=== PATIENT | female | born 1965 | race Caucasian/White ===

== ENCOUNTER 2022-08-16 17:48 | Outpatient (CLI) | payer OTHER, SELFPAY | END 2022-08-16 17:49 | disposition home or self-care (01) | LOC: FRMREF 08-23 14:33 | PROVIDERS: Visit Provider Family Medicine | DX: Z01.818 Encounter for other preprocedural examination (principal); R31.9 Hematuria, unspecified | CPT/HCPCS: 87086 ==

== ENCOUNTER 2023-04-12 11:18 | Outpatient (CLI) | payer OTHER, SELFPAY | END 2023-04-12 11:19 | disposition home or self-care (01) | LOC: NFLDREF 04-13 10:46 | PROVIDERS: Visit Provider Physician Assistant | DX: R30.0 Dysuria (principal) | CPT/HCPCS: 87086; 87186 ==

== ENCOUNTER 2023-06-28 15:49 | Outpatient (CLI) | payer OTHER, SELFPAY | END 2023-06-28 15:50 | disposition home or self-care (01) | LOC: NFLDREF 06-29 12:02 | PROVIDERS: Visit Provider Physician Assistant | DX: R31.29 Other microscopic hematuria (principal); H93.19 Tinnitus, unspecified ear; H91.90 Unspecified hearing loss, unspecified ear | CPT/HCPCS: 87086 ==

== ENCOUNTER 2023-07-29 08:20 | Outpatient (CLI) | payer OTHER, SELFPAY | END 2023-07-29 08:21 | disposition home or self-care (01) | LOC: NFLDREF 08-01 07:51 | PROVIDERS: Visit Provider Physician Assistant | DX: Z13.6 Encounter for screening for cardiovascular disorders (principal); Z13.1 Encounter for screening for diabetes mellitus | CPT/HCPCS: 80061; 82947; 84443 ==

== ENCOUNTER 2023-08-31 15:50 | Outpatient (CLI) | payer OTHER, SELFPAY ==
--- NOTE | 2023-08-31 16:00 | CRLHL7_ITS ---
For Patients: As a result of the Century Cures Act, medical imaging exams and procedure reports are released immediately into your electronic medical record. You may view this report before your referring provider. If you have questions, please contact your health care provider. INDICATION: Tinnitus. TECHNIQUE: High-resolution CT of the bilateral petrous temporal bones. Axial and coronal images of each temporal bone along with wider [id number] images of the posterior fossa structures obtained without contrast. FINDINGS: The external auditory canals are unremarkable. The scutum is sharp bilaterally. The middle ear cavities are clear bilaterally the ossicular chains appear normal. The mastoid air cells are well developed and clear bilaterally. 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 The cochlea and vestibule are unremarkable. The vestibular aqueducts and internal auditory canals are within normal limits. IMPRESSION: 1. Clear middle ear cavities and mastoid air cells bilaterally. 2. 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 Please note that all CT scans at this facility use dose modulation, iterative reconstruction, and/or weight-based dosing when appropriate to reduce radiation dose to as low as reasonably achievable. Dictated by Venancio Beatty MD @ 09/02/2023 10:57:53 AM (Electronically Signed)
== END 2023-08-31 15:51 | disposition home or self-care (01) ==
LOC: CT 15:50
PROVIDERS: Visit Provider Otolaryngology
DX: H93.19 Tinnitus, unspecified ear (principal)
CPT/HCPCS: 70480

== ENCOUNTER 2023-09-29 14:48 | Outpatient (CLI) | payer OTHER, SELFPAY ==
--- NOTE | 2023-09-29 15:00 | CRLHL7_ITS ---
For Patients: As a result of the Century Cures Act, medical imaging exams and procedure reports are released immediately into your electronic medical record. You may view this report before your referring provider. If you have questions, please contact your health care provider. BILATERAL SCREENING MAMMOGRAM WITH COMPUTER-AIDED DETECTION AND TOMOSYNTHESIS TECHNIQUE: CC and MLO views were obtained. These mammographic images have been obtained using full-field digital technique. These mammographic images were interpreted with the benefit of computer-aided detection. Breast tomosynthesis was used in this interpretation. COMPARISON FILM: 07/31/21, 07/03/20, 06/18/19. FINDINGS: There are scattered areas of fibroglandular density. IMPRESSION: There is no radiographic evidence for malignancy. ASSESSMENT: BI-RADS Category 1: Negative RECOMMENDATION: Routine screening mammogram in 1 year. A lay language report of this examination will be provided to the patient. JANINE BARTLETT M.D. Diagnostic Radiologist [email or web address] Transcribed: 09/30/2023, 1:53p.mLior RD/Dictated by: Janine Bartlett MD @ 09/30/2023 12:20:00 PM (Electronically Signed)
== END 2023-09-29 14:49 | disposition home or self-care (01) ==
LOC: MAMMO 14:49
PROVIDERS: Visit Provider Physician Assistant
DX: Z12.31 Encounter for screening mammogram for malignant neoplasm of breast (principal)
CPT/HCPCS: 77063; 77067

== ENCOUNTER 2023-10-04 19:26 | Outpatient (CLI) | payer OTHER, SELFPAY ==
--- NOTE | 2023-10-11 15:58 | P.SLS_ITS ---
Sleep Study Details Details Interpreting Provider: Junito Date of Sleep Study: 10/04/23 Sleep Study Details: STUDY TYPE:? Home unattended ? BMI:? Not recorded ORDERING PROVIDER:? Junito INDICATION:? Concerns about sleep apnea ? SLEEP SUMMARY:? 450 minutes monitored RESPIRATORY SUMMARY:? AHI 9, using 3% rule 15.1 Low oxygen 80 18.4% of study oxygen less than 90% Snoring non PERIODIC LIMB MOVEMENTS OF SLEEP:? Not recorded during home study CARDIAC:? Range 63-97, mean 76.8 IMPRESSION:? Mild to moderate obstructive sleep apnea with supine position dep endency but apnea present in all positions. There was significant hypo oxygenation as well RECOMMENDATION: Treatment options include CPAP auto set 4-17, dental appliance and/or airway expansion surgery.
== END 2023-10-04 19:27 | disposition home or self-care (01) ==
LOC: SLEEP 19:26
PROVIDERS: PCP Physician Assistant; Visit Provider Otolaryngology
DX: G47.33 Obstructive sleep apnea (adult) (pediatric) (principal)
CPT/HCPCS: 95806

== ENCOUNTER 2024-02-13 09:04 | Outpatient (CLI) | payer OTHER, SELFPAY | END 2024-02-13 09:05 | disposition home or self-care (01) | LOC: NFLDREF 03-02 09:22 | PROVIDERS: PCP Physician Assistant; Referring Provider Physician Assistant; Visit Provider Physician Assistant | DX: N39.0 Urinary tract infection, site not specified (principal); R39.9 Unspecified symptoms and signs involving the genitourinary system; R05.1 Acute cough | CPT/HCPCS: 87086; 87186 ==

== ENCOUNTER 2024-07-16 10:06 | Outpatient (CLI) | payer OTHER, SELFPAY ==
[2024-07-18 17:47] LABS: HPV Source Cervix; HPV, High Risk by TMA Not Detected
== END 2024-07-16 10:07 | disposition home or self-care (01) ==
PROVIDERS: Visit Provider Physician Assistant
DX: Z01.419 Encounter for gynecological examination (general) (routine) without abnormal findings (principal); Z12.4 Encounter for screening for malignant neoplasm of cervix
CPT/HCPCS: 87624; 87625; 88141; 88142

== ENCOUNTER 2024-10-09 15:32 | Outpatient (CLI) | payer OTHER, SELFPAY ==
--- NOTE | 2024-10-09 15:40 | CRLHL7_ITS ---
For Patients: As a result of the Century Cures Act, medical imaging exams and procedure reports are released immediately into your electronic medical record. You may view this report before your referring provider. If you have questions, please contact your health care provider. BILATERAL SCREENING MAMMOGRAM WITH COMPUTER-AIDED DETECTION AND TOMOSYNTHESIS TECHNIQUE: CC and MLO views were obtained. These mammographic images have been obtained using full-field digital technique. These mammographic images were interpreted with the benefit of computer-aided detection. Breast Tomosynthesis was used in this interpretation. COMPARISON FILM: 09/29/23, 07/31/21, 06/18/19. FINDINGS: There are scattered areas of fibroglandular density. IMPRESSION: There is no radiographic evidence for malignancy. ASSESSMENT: BI-RADS Category 1: Negative RECOMMENDATION: Routine screening mammogram in 1 year. A lay language report of this examination will be provided to the patient. Mitesh Gonzalez M.D. Diagnostic Radiologist [email or web address] SP/Dictated by: Mitesh Gonzalez MD @ 10/10/2024 9:48:00 AM (Electronically Signed)
== END 2024-10-09 15:33 | disposition home or self-care (01) ==
LOC: MAMMO 15:32
PROVIDERS: Visit Provider Physician Assistant
DX: Z12.31 Encounter for screening mammogram for malignant neoplasm of breast (principal)
CPT/HCPCS: 77063; 77067

== ENCOUNTER 2025-07-22 11:06 | Outpatient (CLI) | payer OTHER, SELFPAY | END 2025-07-22 11:07 | disposition home or self-care (01) | PROVIDERS: Visit Provider Physician Assistant | DX: Z13.9 Encounter for screening, unspecified (principal) | CPT/HCPCS: 80048; 80061 ==